=== PATIENT | female | born 2000 | race Two or more races ===

== ENCOUNTER 2023-08-02 17:02 | Inpatient (IN) | payer MEDICAID, OTHER ==
[~2023-08-02] VITALS: Ht 157.5 cm; Wt 65.7 kg
[2023-08-02 18:17] LABS: Basophils # (auto) 0 10 ^3/uL (0-0.2); Basophils % (auto) 0.1 % (0.0-2.0); Eosinophils # (auto) 0.1 10 ^3/uL (0-0.8); Eosinophils % (auto) 1.1 % (0.0-7.0); Hematocrit 40.6 % (36.0-46.0); Hemoglobin 13.4 g/dL (12.2-16.2); Lymphocytes # (auto) 1.5 10 ^3/uL (0.4-5.4); Lymphocytes % (auto) 13.4 % (10.0-50.0); Mean Corpuscular Hemoglobin 27.2 pg (28.0-32.0); Mean Corpuscular Hgb Conc. 32.9 g/dL (32.0-36.0); Mean Corpuscular Volume 82.5 fL (80.0-100.0); Monocytes # (auto) 0.7 10 ^3/uL (0-1.3); Monocytes % (auto) 6.1 % (0.0-12.0); Neutrophils # (auto) 8.9 10 ^3/uL (1.6-8.6); Neutrophils % (auto) 79.3 % (37.0-80.0); Red Blood Cells 4.92 10^6/uL (4.0-5.20); Red Cell Distribution Width 13.5 % (11.8-14.3); White Blood Cell 11.3 10^3/uL (4.4-10.8)
[2023-08-02 18:37] LABS: Alanine Aminotransferase 68 U/L (7-40); Albumin 4.8 g/dL (3.2-4.8); Alkaline Phosphatase 133 U/L (46-116); Anion Gap 6 (5-15); Aspartate Aminotransferase 129 U/L (13-40); BUN/Creatinine Ratio 16.4 (10.0-20.0); Bilirubin, Total 0.3 mg/dL (0.2-1.0); Blood Urea Nitrogen 11 mg/dL (9-23); Calcium 9.3 mg/dL (8.7-10.4); Carbon Dioxide 29 mmol/L (20-30); Chloride 101 mmol/L (98-107); Glucose 104 mg/dL (74-106); Potassium 4.1 mmol/L (3.5-5.1); Sodium 136 mmol/L (136-145); Total Protein 7.2 g/dL (5.7-8.2)
[2023-08-02 20:17] LABS: Urine Bacteria NONE SEEN /hpf (None Seen); Urine Blood Negative /uL (Negative); Urine Clarity Clear (Clear); Urine Color Colorless (Yellow); Urine Mucus FEW (None Seen); Urine Protein, UAD Negative (Negative); Urine Specific Gravity 1.016 (1.001-1.035); Urine Urobilinogen Normal (Negative); Urine WBC 2 /hpf (0 - 5); Urine pH 6.5 (5.0-8.0)
[2023-08-02] MEDS ORDERED: FAMOTIDINE 20 MG TAB PO ONE (20:45)
[2023-08-02] MEDS ORDERED: ONDANSETRON ODT 4 MG TAB PO ONE (20:45)
[2023-08-02] MEDS ORDERED: MAALOX PLUS or MAALOX 30 ML PO ONE (20:45)
[2023-08-02] MEDS ORDERED: LIDOCAINE VISCOUS 2% 15ML UD PO ONE (20:45)
[2023-08-02] MEDS ORDERED: SODIUM CHLORIDE 0.9% 1,000 ML IV ONE (21:00)
[2023-08-02] MEDS ORDERED: ACETAMINOPHEN 325 MG TAB PO PRN (22:15)
[2023-08-02] MEDS: SODIUM CHLORIDE 0.9% 1,000 ML IV SCH (22:15)
[2023-08-02] MEDS: AMPICILLIN & SULBACTAM SODIUM 3 GM in SODIUM CHL 0.9% 100 ML IV SCH (23:00)
[2023-08-02 23:04] LABS: INR 0.98 (0.9-1.15); Partial Thromboplastin Time 24.5 SEC (24.5-34.5); Prothrombin Time 10.3 sec (9.3-11.8)
[2023-08-03] MEDS: AMPICILLIN & SULBACTAM SODIUM 3 GM in SODIUM CHL 0.9% 100 ML IV SCH ×4 (04:27→23:12)
[2023-08-03] MEDS: SODIUM CHLORIDE 0.9% 1,000 ML IV SCH ×3 (04:33→23:15)
[2023-08-03] MEDS: MORPHINE SULFATE INJ 2 MG/ml SYRG IV PRN ×2 (04:50→22:20)
[2023-08-03 04:54] VITALS: BP 125/62; PULSE 66; RESP 15; TEMP 98.5; O2SAT 99
[2023-08-03 06:42] LABS: Basophils # (auto) 0 10 ^3/uL (0-0.2); Basophils % (auto) 0.3 % (0.0-2.0); Eosinophils # (auto) 0 10 ^3/uL (0-0.8); Eosinophils % (auto) 0.6 % (0.0-7.0); Hematocrit 38.8 % (36.0-46.0); Hemoglobin 12.8 g/dL (12.2-16.2); Lymphocytes # (auto) 1.1 10 ^3/uL (0.4-5.4); Lymphocytes % (auto) 19.8 % (10.0-50.0); Mean Corpuscular Hemoglobin 27.4 pg (28.0-32.0); Mean Corpuscular Hgb Conc. 32.9 g/dL (32.0-36.0); Mean Corpuscular Volume 83.3 fL (80.0-100.0); Monocytes # (auto) 0.6 10 ^3/uL (0-1.3); Monocytes % (auto) 10.5 % (0.0-12.0); Neutrophils % (auto) 68.8 % (37.0-80.0); Red Blood Cells 4.66 10^6/uL (4.0-5.20); Red Cell Distribution Width 13.5 % (11.8-14.3); White Blood Cell 5.8 10^3/uL (4.4-10.8)
[2023-08-03 07:04] LABS: Alanine Aminotransferase 762 U/L (7-40); Alkaline Phosphatase 159 U/L (46-116); Anion Gap 8 (5-15); Calcium 8.8 mg/dL (8.5-10.1); Carbon Dioxide 22 mmol/L (20-30); Chloride 109 mmol/L (98-107); Glucose 106 mg/dL (74-106); Potassium 4.1 mmol/L (3.5-5.1); Sodium 139 mmol/L (136-145)
[2023-08-03 07:05] LABS: Albumin 4.1 g/dL (3.2-4.8); Bilirubin, Total 1.6 mg/dL (0.2-1.0); Total Protein 6.5 g/dL (5.7-8.2)
[2023-08-03 07:12] LABS: BUN/Creatinine Ratio 8.2 (10.0-20.0); Blood Urea Nitrogen < 5 mg/dL (9-23)
[2023-08-03 07:16] LABS: Aspartate Aminotransferase 1083 U/L (13-40)
[2023-08-03 09:00] VITALS: BP 116/68; PULSE 85; RESP 16; TEMP 98; O2SAT 97
[2023-08-03] MEDS: PANTOPRAZOLE 40 MG/10 ML VIAL INJ IV SCH (09:32)
[2023-08-03 13:00] VITALS: BP 103/61; PULSE 68; RESP 16; TEMP 98.3; O2SAT 96
[2023-08-03 17:00] VITALS: BP 107/64; PULSE 75; RESP 18; TEMP 98.5; O2SAT 99
[2023-08-03 21:55] VITALS: BP 111/57; PULSE 56; RESP 15; TEMP 97.7; O2SAT 96
[2023-08-04] MEDS: SODIUM CHLORIDE 0.9% 1,000 ML IV SCH ×3 (02:31→10:37)
[2023-08-04] MEDS: AMPICILLIN & SULBACTAM SODIUM 3 GM in SODIUM CHL 0.9% 100 ML IV SCH ×4 (04:43→22:33)
[2023-08-04 05:03] VITALS: BP 97/50; PULSE 66; RESP 16; TEMP 97.9; O2SAT 98
[2023-08-04 05:25] LABS: Basophils # (auto) 0 10 ^3/uL (0-0.2); Basophils % (auto) 0.4 % (0.0-2.0); Eosinophils # (auto) 0.2 10 ^3/uL (0-0.8); Eosinophils % (auto) 4.6 % (0.0-7.0); Hematocrit 37.6 % (36.0-46.0); Hemoglobin 12.5 g/dL (12.2-16.2); Lymphocytes # (auto) 1.4 10 ^3/uL (0.4-5.4); Lymphocytes % (auto) 26.8 % (10.0-50.0); Mean Corpuscular Hemoglobin 27.5 pg (28.0-32.0); Mean Corpuscular Hgb Conc. 33.2 g/dL (32.0-36.0); Mean Corpuscular Volume 82.9 fL (80.0-100.0); Monocytes # (auto) 0.4 10 ^3/uL (0-1.3); Monocytes % (auto) 8.2 % (0.0-12.0); Neutrophils # (auto) 3.2 10 ^3/uL (1.6-8.6); Nucleated Red Blood Cells % 0.1 %; Red Blood Cells 4.54 10^6/uL (4.0-5.20); Red Cell Distribution Width 13.6 % (11.8-14.3); White Blood Cell 5.3 10^3/uL (4.4-10.8)
[2023-08-04 05:36] LABS: Alanine Aminotransferase 721 U/L (7-40); Albumin 4.1 g/dL (3.2-4.8); Alkaline Phosphatase 210 U/L (46-116); Anion Gap 7 (5-15); Aspartate Aminotransferase 408 U/L (13-40); BUN/Creatinine Ratio 10.4 (10.0-20.0); Bilirubin, Total 1.2 mg/dL (0.2-1.0); Blood Urea Nitrogen 7 mg/dL (9-23); Calcium 8.5 mg/dL (8.7-10.4); Carbon Dioxide 24 mmol/L (20-30); Chloride 108 mmol/L (98-107); Glucose 69 mg/dL (74-106); Potassium 3.8 mmol/L (3.5-5.1); Sodium 139 mmol/L (136-145); Total Protein 6.3 g/dL (5.7-8.2)
[2023-08-04] MEDS: MORPHINE SULFATE INJ 2 MG/ml SYRG IV PRN ×3 (06:50→22:34)
[2023-08-04 08:00] VITALS: PULSE 53; RESP 16; O2SAT 100
[2023-08-04 09:00] VITALS: BP 96/48; PULSE 53; RESP 16; TEMP 97.8; O2SAT 100
[2023-08-04] MEDS: PANTOPRAZOLE 40 MG/10 ML VIAL INJ IV SCH (09:36)
[2023-08-04] MEDS: DOCUSATE SOD 100 MG CAP PO PRN (10:47)
[2023-08-04] MEDS: HYDROcodone-ACET 5/325MG TAB PO PRN (12:56)
[2023-08-04 12:58] VITALS: BP 115/71; PULSE 67; RESP 18; TEMP 98.4; O2SAT 97
[2023-08-04] MEDS: ONDANSETRON HCL 4 MG/2 ML VIAL IV PRN (16:02)
[2023-08-04 17:00] VITALS: BP 111/56; PULSE 74; RESP 18; TEMP 98.3; O2SAT 98
[2023-08-04 22:08] VITALS: BP 118/72; PULSE 69; RESP 16; TEMP 97.9; O2SAT 97
[2023-08-05] VITALS (7 sets, daily range): BP systolic 102–111; BP diastolic 50–69; PULSE 52–78; RESP 15–22; TEMP 97.6–98.1; O2SAT 97–100
[2023-08-05] MEDS: SODIUM CHLORIDE 0.9% 1,000 ML IV SCH ×2 (05:07→15:00)
[2023-08-05] MEDS: AMPICILLIN & SULBACTAM SODIUM 3 GM in SODIUM CHL 0.9% 100 ML IV SCH ×4 (05:07→22:34)
[2023-08-05 05:28] LABS: Basophils # (auto) 0 10 ^3/uL (0-0.2); Basophils % (auto) 0.5 % (0.0-2.0); Eosinophils # (auto) 0.2 10 ^3/uL (0-0.8); Eosinophils % (auto) 4.6 % (0.0-7.0); Hematocrit 36.9 % (36.0-46.0); Hemoglobin 12.1 g/dL (12.2-16.2); Lymphocytes # (auto) 1.6 10 ^3/uL (0.4-5.4); Lymphocytes % (auto) 34.8 % (10.0-50.0); Mean Corpuscular Hemoglobin 27.4 pg (28.0-32.0); Mean Corpuscular Hgb Conc. 32.8 g/dL (32.0-36.0); Mean Corpuscular Volume 83.6 fL (80.0-100.0); Monocytes # (auto) 0.5 10 ^3/uL (0-1.3); Monocytes % (auto) 10.1 % (0.0-12.0); Neutrophils # (auto) 2.4 10 ^3/uL (1.6-8.6); Nucleated Red Blood Cells % 0.1 %; Red Blood Cells 4.42 10^6/uL (4.0-5.20); Red Cell Distribution Width 13.3 % (11.8-14.3); White Blood Cell 4.7 10^3/uL (4.4-10.8)
[2023-08-05 05:46] LABS: Alanine Aminotransferase 538 U/L (7-40); Alkaline Phosphatase 225 U/L (46-116); Anion Gap 9 (5-15); Aspartate Aminotransferase 220 U/L (13-40); Bilirubin, Total 1.1 mg/dL (0.2-1.0); Calcium 8.7 mg/dL (8.7-10.4); Carbon Dioxide 23 mmol/L (20-30); Chloride 107 mmol/L (98-107); Glucose 85 mg/dL (74-106); Potassium 3.6 mmol/L (3.5-5.1); Sodium 139 mmol/L (136-145)
[2023-08-05 05:54] LABS: BUN/Creatinine Ratio 7.6 (10.0-20.0); Blood Urea Nitrogen < 5 mg/dL (9-23)
[2023-08-05] MEDS: PANTOPRAZOLE 40 MG/10 ML VIAL INJ IV SCH (08:46)
[2023-08-05] MEDS: HYDROcodone-ACET 5/325MG TAB PO PRN ×2 (08:49→18:50)
[2023-08-05] MEDS: DOCUSATE SOD 100 MG CAP PO PRN (12:56)
[2023-08-05] MEDS: ONDANSETRON HCL 4 MG/2 ML VIAL IV PRN ×2 (13:53→20:38)
[2023-08-05 14:16] LABS: Alanine Aminotransferase 512 U/L (7-40); Alkaline Phosphatase 239 U/L (46-116); Anion Gap 10 (5-15); Aspartate Aminotransferase 227 U/L (13-40); Bilirubin, Total 1.6 mg/dL (0.2-1.0); Carbon Dioxide 23 mmol/L (20-30); Chloride 106 mmol/L (98-107); Glucose 116 mg/dL (74-106); Potassium 3.9 mmol/L (3.5-5.1); Sodium 139 mmol/L (136-145); Total Protein 6.1 g/dL (5.7-8.2)
[2023-08-05 14:21] LABS: BUN/Creatinine Ratio 7.6 (10.0-20.0); Blood Urea Nitrogen < 5 mg/dL (9-23)
[2023-08-06] VITALS (7 sets, daily range): BP systolic 97–113; BP diastolic 56–68; PULSE 56–69; RESP 14–22; TEMP 97.6–98.2; O2SAT 95–100
[2023-08-06] MEDS: SODIUM CHLORIDE 0.9% 1,000 ML IV SCH ×3 (01:00→21:00)
[2023-08-06] MEDS: DOCUSATE SOD 100 MG CAP PO PRN ×2 (02:04→22:21)
[2023-08-06] MEDS: AMPICILLIN & SULBACTAM SODIUM 3 GM in SODIUM CHL 0.9% 100 ML IV SCH ×4 (05:34→23:48)
[2023-08-06] MEDS: PANTOPRAZOLE 40 MG/10 ML VIAL INJ IV SCH (11:21)
[2023-08-06] MEDS: MORPHINE SULFATE INJ 2 MG/ml SYRG IV PRN (16:23)
[2023-08-07 05:00] VITALS: BP 104/59; PULSE 57; RESP 16; TEMP 98; O2SAT 98
[2023-08-07] MEDS: AMPICILLIN & SULBACTAM SODIUM 3 GM in SODIUM CHL 0.9% 100 ML IV SCH ×3 (05:18→17:15)
[2023-08-07 05:52] LABS: Basophils # (auto) 0 10 ^3/uL (0-0.2); Basophils % (auto) 0.3 % (0.0-2.0); Eosinophils # (auto) 0.2 10 ^3/uL (0-0.8); Hematocrit 37.6 % (36.0-46.0); Hemoglobin 12.4 g/dL (12.2-16.2); Lymphocytes # (auto) 1.4 10 ^3/uL (0.4-5.4); Lymphocytes % (auto) 34.1 % (10.0-50.0); Mean Corpuscular Hemoglobin 27.4 pg (28.0-32.0); Mean Corpuscular Hgb Conc. 32.9 g/dL (32.0-36.0); Mean Corpuscular Volume 83.1 fL (80.0-100.0); Monocytes # (auto) 0.5 10 ^3/uL (0-1.3); Monocytes % (auto) 10.7 % (0.0-12.0); Neutrophils # (auto) 2.2 10 ^3/uL (1.6-8.6); Neutrophils % (auto) 50.9 % (37.0-80.0); Red Blood Cells 4.52 10^6/uL (4.0-5.20); Red Cell Distribution Width 13.6 % (11.8-14.3); White Blood Cell 4.2 10^3/uL (4.4-10.8)
[2023-08-07 06:04] LABS: Alanine Aminotransferase 401 U/L (7-40); Alkaline Phosphatase 238 U/L (46-116); Calcium 8.6 mg/dL (8.7-10.4); Chloride 107 mmol/L (98-107)
[2023-08-07 06:05] LABS: Anion Gap 10 (5-15); Aspartate Aminotransferase 186 U/L (13-40); Bilirubin, Total 1.8 mg/dL (0.2-1.0); Carbon Dioxide 23 mmol/L (20-30); Glucose 88 mg/dL (74-106); Potassium 3.6 mmol/L (3.5-5.1); Sodium 140 mmol/L (136-145); Total Protein 6.2 g/dL (5.7-8.2)
[2023-08-07 06:31] LABS: BUN/Creatinine Ratio 9.4 (10.0-20.0); Blood Urea Nitrogen < 5 mg/dL (9-23)
[2023-08-07 08:00] VITALS: BP 113/68; PULSE 56; RESP 19; TEMP 98.2; O2SAT 100
[2023-08-07 09:19] VITALS: BP 96/62; PULSE 69; RESP 15; TEMP 97.9; O2SAT 97
[2023-08-07] MEDS: PANTOPRAZOLE 40 MG/10 ML VIAL INJ IV SCH (11:24)
[2023-08-07] MEDS: SODIUM CHLORIDE 0.9% 1,000 ML IV SCH ×2 (11:24→17:15)
[2023-08-07 12:51] VITALS: BP 97/56; PULSE 61; RESP 15; TEMP 98; O2SAT 99
[2023-08-07 16:32] VITALS: BP 97/56; PULSE 61; RESP 15; TEMP 36.7; O2SAT 99
== END 2023-08-07 20:01 | disposition short-term general hospital (02) ==
LOC: ER 17:02 → OVERFLOW 22:08 → CENTRAL 08-03 04:25
PROVIDERS: ADMIT Nurse Practitioner Family; ATTEND Internal Medicine
DX: K80.63 Calculus of gallbladder and bile duct with acute cholecystitis with obstruction (principal); K72.90 Hepatic failure, unspecified without coma; N30.00 Acute cystitis without hematuria; R74.01 Elevation of levels of liver transaminase levels
CPT/HCPCS: 36415; 74181; 76705; 78226; 80053; 81001; 83605; 83690; 84484; 84702; 85025; 85610; 85730; C9113; G0378; J2405; Q0162

== ENCOUNTER 2025-05-20 11:41 | Outpatient (CLI) | payer MEDICAID ==
[2025-05-20 12:11] LABS: Hematocrit 40.8 % (36.0-46.0); Hemoglobin 13.7 g/dL (12.2-16.2); Mean Corpuscular Hemoglobin 28.4 pg (28.0-32.0); Mean Corpuscular Volume 85.0 fL (80.0-100.0); Nucleated Red Blood Cells % 0.1 %
[2025-05-20 13:09] LABS: Alanine Aminotransferase 31 U/L (7-40); Alkaline Phosphatase 71 U/L (46-116); Amphetamine Screen, Urine Neg (NEGATIVE); Anion Gap 9 (5-15); BUN/Creatinine Ratio 10.1 (10.0-20.0); Barbiturate Scree,Urine Neg (NEGATIVE); Calcium 9.1 mg/dL (8.7-10.4); Carbon Dioxide 27 mmol/L (20-31); Chloride 105 mmol/L (98-107); Glucose 94 mg/dL (74-106); Potassium 3.9 mmol/L (3.5-5.1); Sodium 141 mmol/L (136-145); Total Protein 7.0 g/dL (5.7-8.2); Triglycerides 133 mg/dL (< 150)
[2025-05-20 13:10] LABS: Albumin 4.5 g/dL (3.2-4.8); Bilirubin, Direct 0.2 mg/dL (<0.3); Bilirubin, Total 0.6 mg/dL (0.2-1.0); Cholesterol 126 mg/dL (< 200); HDL Cholesterol 43 mg/dL (40-59)
[2025-05-20 13:11] LABS: Benzodiazephine Screen, Urine Neg (NEGATIVE); Blood Urea Nitrogen 7 mg/dL (9-23); Cannabinoid Screen, Urine Neg (NEGATIVE); Cocaine Screen, Urine Neg (NEGATIVE); Opiate Scree,Urine Neg (NEGATIVE); Phencyclidine Screen, Urine Neg (NEGATIVE)
[2025-05-22 03:07] LABS: Chlamydia Trachomatis, NAA Negative (Negative); Neisseria gonorrhoeae, NAA Negative (Negative)
== END 2025-05-22 17:00 | disposition home or self-care (01) ==
LOC: LAB 11:41
PROVIDERS: ATTEND Licensed Practical Nurse
DX: E55.9 Vitamin D deficiency, unspecified (principal); Z11.3 Encounter for screening for infections with a predominantly sexual mode of transmission; Z13.6 Encounter for screening for cardiovascular disorders; Z13.1 Encounter for screening for diabetes mellitus; Z00.00 Encounter for general adult medical examination without abnormal findings; Z13.29 Encounter for screening for other suspected endocrine disorder; Z13.220 Encounter for screening for lipoid disorders
CPT/HCPCS: 36415; 80053; 80061; 80076; 80307; 82043; 82306; 83036; 84443; 85025; 86703; 86780

== ENCOUNTER 2025-06-17 09:17 | Outpatient (CLI) | payer MEDICAID | END 2025-06-17 17:00 | disposition home or self-care (01) | LOC: LAB 09:17 | DX: Z34.80 Encounter for supervision of other normal pregnancy, unspecified trimester (principal); Z3A.00 Weeks of gestation of pregnancy not specified | CPT/HCPCS: 36415; 84702 ==